=== PATIENT | female | born 2000 | race Caucasian/White ===

== ENCOUNTER 2018-02-20 19:48 | Emergency (ER) | payer OTHER ==
[~2018-02-20] VITALS: Ht 182.9 cm; Wt 72.6 kg
== END 2018-02-20 21:58 | disposition home or self-care (01) ==
LOC: ER 19:48
DX: S30.0XXA Contusion of lower back and pelvis, initial encounter (principal); S60.212A Contusion of left wrist, initial encounter; W18.39XA Other fall on same level, initial encounter; Y93.67 Activity, basketball; Y92.89 Other specified places as the place of occurrence of the external cause; Y99.8 Other external cause status